=== PATIENT | male | born 1945 | race Caucasian/White ===

== ENCOUNTER 2023-08-26 10:42 | Emergency (ER) | payer MEDICARE, SELFPAY ==
--- NOTE | ~2023-08-26 | CT_ITS ---
EXAMINATION: CT BRAIN W/O DATE: 08/26/2023 11:08 INDICATION: Status post fall. Head injury. Loss of consciousness. TECHNIQUE: Computed tomography (CT) of the head was performed without intravenous contrast. The dose- length product was 605.33 mGy-cm. Automated exposure control and iterative reconstruction technique w ere employed. COMPARISON: No prior studies for comparison. FINDINGS: Normal brain parenchymal volume for age. Normal grier-white differentiation. No acute intrac ranial hemorrhage, infarction, mass or mass effect. There is a left posterior parietal scalp hematoma . No ventriculomegaly or midline shift. Midline sagittal images demonstrate a normal corpus callosum, c raniovertebral junction and sella turcica. Basilar cisterns are patent. Paranasal sinuses and mastoids are pneumatized. No depressed skull fractures. IMPRESSION: 1. No acute intracranial abnormality. Reviewed, dictated and finalized at location B. [employer]
--- NOTE | ~2023-08-26 | CT_ITS ---
EXAMINATION: CT cervical spine wo con DATE: 08/26/2023 11:08 INDICATION: Neck pain after fall TECHNIQUE: Computed tomography (CT) of the cervical spine was performed without intravenous contrast. The dose-length product was 318 mGy-cm. Automated exposure control and iterative reconstruction tech [employer] were employed. COMPARISON: None FINDINGS: Vertebral body heights are maintained. Craniovertebral junction is normal. There are promin ent bridging osteophytes anteriorly at multiple levels. There are prominent dorsal osteophytes at C6- 7 causing central canal stenosis. No evidence for perched facet. Spinous processes are normal. Odonto id process is normal. Lung apices are normal. No paraspinal soft tissue abnormalities. There is a low -density mass of the left thyroid lobe measuring 2 cm. Recommend correlation with thyroid ultrasound. IMPRESSION: 1. No acute abnormality of the cervical spine. Reviewed, dictated and finalized at location B. [employer]
[2023-08-26 10:49] VITALS: BP 154/89; PULSE 82; RESP 16; TEMP 36.8; O2SAT 98
[2023-08-26 12:48] VITALS: BP 143/80; PULSE 74; RESP 18; O2SAT 97
--- NOTE | 2023-08-26 12:56 | ED.GENADULT ---
HPI - General Adult General Chief complaint: Fall Stated complaint: fall on ice, struck head Time Seen by Provider: 08/26/23 11:48 78-year-old male presents to the emergency department for evaluation after having a ground level fall. Patient slipped on his icy porch and struck his head on concrete. Patient suspects he may have had loss of consciousness. Upon arrival to emergency department patient did have some complaint of headache but was able to ambulate at his baseline. Related Data Allergies Allergy/AdvReac Type Severity Reaction Status Date / Time Penicillins Allergy Intermediate Rash Verified 08/26/23 10:53 Review of Systems Review of Systems: All systems reviewed & are unremarkable except as noted in HPI and below Exam Narrative: APPEARANCE: Well appearing, no pain, no distress, well-nourished. HEAD: normocephalic, atraumatic. EYES: PERRLA/EOMI, conjunctivae clear. NOSE: Normal no drainage EARS:TMS clear with good light reflex. THROAT: Pharynx clear, no exudate. NECK: Supple. No adenopathy, no masses. RESPIRATORY: Airway patent, respirations nonlabored. Clear to auscultation bilaterally, no rales, rhonchi, wheezing. CARDIOVASCULAR: Regular rate and rhythm without murmurs rubs or gallops. ABDOMINAL: Soft, nontender, nondistended, normal bowel sounds MUSCULOSKELETAL: Moves all extremities. Strength/ROM intact, No edema, No calf tenderness. NEURO: Alert. Cranial nerves II through XII intact. Grossly intact SKIN: Warm, dry. Normal Color Course Course Emergency Course: 78-year-old male presenting to the emergency department for evaluation after having a head injury. Patient has had and cervical spine were negative. Patient was able to ambulate at his baseline. All questions concerns were addressed patient was well-appearing at time of discharge. Vital Signs Vital signs: Vital Signs Temperature 98.2 F 08/26/23 10:49 Pulse Rate 82 08/26/23 10:49 Respiratory Rate 16 08/26/23 10:49 Blood Pressure 154/89 H 08/26/23 10:49 Pulse Oximetry 98 08/26/23 10:49 Temperature 98.2 F 08/26/23 10:49 Pulse Rate 74 08/26/23 12:48 Respiratory Rate 18 08/26/23 12:48 Blood Pressure 143/80 H 08/26/23 12:48 Pulse Oximetry 97 08/26/23 12:48 Medical Decision Making Vital Signs Vital Signs: Vital Signs Temperature 98.2 F 08/26/23 10:49 Pulse Rate 82 08/26/23 10:49 Respiratory Rate 16 08/26/23 10:49 Blood Pressure 154/89 H 08/26/23 10:49 Pulse Oximetry 98 08/26/23 10:49 Temperature 98.2 F 08/26/23 10:49 Pulse Rate 74 08/26/23 12:48 Respiratory Rate 18 08/26/23 12:48 Blood Pressure 143/80 H 08/26/23 12:48 Pulse Oximetry 97 08/26/23 12:48 Imaging Data Radiologist's impression: Impressions Head CT 08/26/23 11:13 IMPRESSION: 1. No acute intracranial abnormality. Cervical Spine CT 08/26/23 11:23 IMPRESSION: 1. No acute abnormality of the cervical spine. Discharge Plan Discharge Clinical Impression: Head injury Patient Disposition: Home, Self-Care Condition: Stable Instructions: Antibiotic Form, Head Injury (ED) Additional Instructions: Have close follow-up with your primary care physician. Tylenol and ibuprofen for pain control. If you have any worsening symptoms then please call or return to the emergency department. Follow-up/Referrals: Sujatha Leonardo MD [Primary Care Provider] -
== END 2023-08-26 13:45 | disposition home or self-care (01) ==
PROVIDERS: Emergency Provider Emergency Medicine; PCP Hospitalist
DX: S09.90XA Unspecified injury of head, initial encounter (principal); W00.0XXA Fall on same level due to ice and snow, initial encounter
CPT/HCPCS: 70450; 72125; 99284